=== PATIENT | female | born 1985 | race Caucasian/White ===

== ENCOUNTER 2017-08-23 18:00 | Outpatient (CLI) | payer MEDICAID ==
[~2017-08-23] VITALS: Ht 152.4 cm; Wt 74.2 kg
[2017-08-23 18:11] VITALS: BP 116/69; PULSE 106; RESP 16; Ht 152.4 cm; Wt 74.2 kg
--- NOTE | 2017-08-23 18:39 | RADRPT ---
PROCEDURE: Obstetrical ultrasound CLINICAL INDICATION: . OB ultrasound with fluid volume assessment. TECHNIQUE: Transabdominal sonographic images of the uterus obtained after first trimester , greater than 14 weeks gestation. Single intrauterine gestation present. Examination for fluid volu me assessment. COMPARISON: None available. FINDINGS: Presentation: Cephalic Partially visualized placenta: anterior heart rate: 133 Beats per minute. IMPRESSION: Amniotic fluid index equals 9.9 cm. RPTAT: AADD .Edgardo Fisher MD, MD Date Time Electronically viewed and signed by .Edgardo Fisher MD, on 08/23/2017 18:39 .B/
--- NOTE | 2017-08-23 19:36 | PN ---
Triage Information Date/Time 08/23/17 193 Reason for visit: SROM Weeks of Gestation 36w5d /Para Diabetes: none Hypertention: none Objective Vital Signs Date Time Temp Pulse Resp B/P Pulse Ox O2 Delivery O2 Flow Rate FiO2 08/23/17 18:11 97.7 106 16 116/69 Heart Rate: 140's Contractions: None Exam vaginal speculum exam no pooling ROM plus neg VE closed Results/Medications Results 24 hrs Laboratory Tests Test 08/23/17 18:09 Membranes Rupture NEGATIVE Imaging Results AUGUST 9.9 Disposition: Discharge Assessment/Plan A IUP 36w5d no ROM P discharge home with routine labor instructions take caution as if leaking fluid such as no bath and no sex RTH if any more question of leaking still repeat AUGUST in 3days CLAYTON RICHTER MD Aug 23, 2017 19:36
== END 2017-08-23 19:25 | disposition home or self-care (01) ==
LOC: OBT 18:00 → L-D 18:01 → OBT 19:25
PROVIDERS: ATTEND Obstetrics & Gynecology
DX: O42.913 Preterm premature rupture of membranes, unspecified as to length of time between rupture and onset of labor, third trimester (principal); Z3A.36 36 weeks gestation of pregnancy
CPT/HCPCS: 76815; 84112; Z7500; G0463

== ENCOUNTER 2017-09-08 13:30 | Inpatient (IN) | payer MEDICAID ==
[~2017-09-08] VITALS: Ht 144.8 cm; Wt 75.1 kg
[~2017-09-08 13:30] MED LIST: OXYTOCIN 30 UNITS/LR 500 ML BAG IV ONE
[2017-09-08 14:06] VITALS: Ht 144.8 cm; Wt 75.1 kg
[2017-09-08] MEDS ORDERED: PREN-19 PO (14:08)
[2017-09-08] MEDS ORDERED: METHYLERGONOVINE 0.2 MG INJ IM PRN (14:30)
[2017-09-08] MEDS ORDERED: CARBOPROST 250 MCG INJ IM PRN (14:30)
[2017-09-08] MEDS ORDERED: OXYTOCIN 30 UNITS/LR 500 ML IV PRN (14:30)
[2017-09-08] MEDS ORDERED: CEFAZOLIN 2 GM/50 ML (PMX) 50 ML IV SCH (14:30)
[2017-09-08] MEDS ORDERED: OXYTOCIN 30 UNITS/LR 500 ML IV SCH (14:30)
[2017-09-08] MEDS ORDERED: MISOPROSTOL 200 MCG TAB PR PRN (14:30)
[2017-09-08 15:11] LABS: BASOPHILS % 0.2 % (0.0-2.0); EOSINOPHILS % 0.4 % (0.0-7.0); HEMATOCRIT 36.3 % (37.0-47.0); HEMOGLOBIN 12.5 g/dl (12.0-16.0); LYMPHOCYTES # 1.3 10^3/ul (0.8-2.9); LYMPHOCYTES % 13.8 % (15.0-51.0); MEAN CORPUSCULAR HEMOGLOBIN 30.4 pg (29.0-33.0); MEAN CORPUSCULAR HGB CONC 34.4 g/dl (32.0-37.0); MEAN CORPUSCULAR VOLUME 88.3 fl (82.0-101.0); MEAN PLATELET VOLUME 9.4 fl (7.4-10.4); MONOCYTE # 0.6 10^3/ul (0.3-0.9); NEUTROPHIL # 7.1 10^3/ul (1.6-7.5); NEUTROPHILS % 77.7 % (39.0-77.0); PLATELET COUNT 182 10^3/UL (140-415); RED BLOOD COUNT 4.11 10^6/ul (4.20-5.40); RED CELL DISTRIBUTION WIDTH 13.5 % (11.5-14.5); WHITE BLOOD COUNT 9.1 10^3/ul (4.8-10.8)
[2017-09-08 15:48] VITALS: BP 114/71; PULSE 76; RESP 18
[2017-09-08 15:50] LABS: INR 0.89; PT RATIO 0.9
[2017-09-08 15:51] LABS: PARTIAL THROMBOPLASTIN TIME 29.6 Sec (25.0-35.0)
[2017-09-08] MEDS ORDERED: LACTATED RINGER'S 1,000 ML IV SCH (16:00)
[2017-09-08] MEDS ORDERED: LACTATED RINGER'S 1,000 ML IV STA (17:08)
[2017-09-08] MEDS ORDERED: morphine 4 MG/ML VIAL IV PRN (17:30)
[2017-09-08] MEDS ORDERED: ZOLPIDEM 5 MG TAB PO PRN (17:30)
[2017-09-08] MEDS ORDERED: morphine 2 MG INJ IV PRN (17:30)
[2017-09-08] MEDS ORDERED: ONDANSETRON 4 MG INJ IV PRN (17:30)
[2017-09-08] MEDS ORDERED: DIPHENHYDRAMINE 50 MG INJ IV PRN (17:30)
[2017-09-08] MEDS ORDERED: NALOXONE (0.4 MG/ML) INJ IV PRN (17:30)
[2017-09-08] MEDS ORDERED: morphine SULFATE/PF (10 MG/10 ML) INJ ONE (17:39)
[2017-09-08] MEDS ORDERED: FENTAnyl 50 MCG/ML VIAL ONE (17:39)
--- NOTE | 2017-09-08 17:53 | HP ---
Date/Time of Note Date/Time of Note DATE: 09/08/17 TIME: 17:50 OB - History Hx of Present Chief Complaint: scheduled c/s Estimated Due Date: Sep 15, 2017 : 4 Para: 3 Spontaneous : 0 Therapeutic : 0 Care: Good Care Ultrasounds: Normal mid trimester US Obstetrical Complications: None Medical Complications: None Past Family/Social History * Past Medical, Surgical, Family and Obstetric Histories reviewed from chart. GBS Status: Negative OB Admission Exam Vital Signs Vital Signs Vital Signs Date Time Temp Pulse Resp B/P Pulse Ox O2 Delivery O2 Flow Rate FiO2 09/08/17 15:48 97.9 76 18 114/71 Room Air Physical Exam HEENT: WNL Heart: Rhythm Normal Lungs: Clear, Equal Abdomen: WNL Extremities: Normal Reflexes: Normal Heart Rate: 120's Accelerations: Accelerations Present Decelerations: No Decelerations Varibility: Moderate Last 72 hours Lab Results CBC & BMP 09/08/17 14:30 OB Assessment/Plan Reason for admission: section Plan: Section SOLOMON ANDINO MD Sep 08, 2017 17:53
[2017-09-08] MEDS ORDERED: DEXAMETHASONE 4 MG/ML 1 ML INJ ONE (18:25)
--- NOTE | 2017-09-08 19:30 | OPPN ---
Date/Time of Note Date/Time of Note DATE: 09/08/17 TIME: 19:24 Operative Report Planned Procedure Procedure date Sep 08, 2017 Procedure(s) Repeat c/s Performed by Solomon Andino MD Patternmaker Metal Bench Omaira Rendon MD Anesthesiologist: RAH KRAUS Pre-procedure diagnosis 39 weeks previous c/s Anesthesia Type: spinal Post-Procedure Post-procedure diagnosis Same Findings Live Baby [], Apgars 9 and 9 Estimated Blood Loss: 500 - 600 mls (600 ml) Specimen(s) none Grafts/Implant(s) none Complication(s) none SOLOMON ANDINO MD Sep 08, 2017 19:30
[2017-09-08 20:00] VITALS: BP 107/68; PULSE 87; RESP 18
--- NOTE | 2017-09-08 20:03 | OPR ---
DATE OF OPERATION: 09/08/2017 PREOPERATIVE DIAGNOSES: at 39 weeks with previous section. POSTOPERATIVE DIAGNOSES: at 39 weeks with previous section. OPERATION PERFORMED: Repeat low transverse section. SURGEON: Solomon Mendes MD. FLAME CUTTING MACHINE OPERATOR HELPER: Omaira Rendon MD ANESTHESIA: Spinal. ANESTHESIOLOGIST: Dr. Harrell. PROCEDURE: The patient was taken to the operating room and placed on the operating table. After sylvester ccessful spinal anesthesia was given, the patient was placed in supine position. The area was prepa red and draped in the usual sterile fashion. Spinal anesthesia was tested and was satisfactory. Us ing a scalpel, Pfannenstiel incision was made about 2 fingerbreadths above the symphysis pubis. The incision was carried to the fascia. The fascia was incised and extended bilaterally with Silverio scis sors. Two Anju's were used to separate the fascia from the muscle. The muscle was dissected down to peritoneum. The peritoneum was secured with 2 Kellys and incised with Metzenbaum scissors. Usi ng a scalpel, a small transverse incision was made in the lower segment of the uterus. Upon enterin g the uterine cavity, bandage scissors were inserted to extend the incision bilaterally, curved up. Baby was delivered from cephalic presentation. There was a nuchal cord. After suctioning clear of amniotic fluid, the baby was handed off to the team in attendance. Apgars were 9 and 9. The placenta was delivered without difficulty. The uterus was closed with #1 Monocryl continuous lo cked. After assuring hemostasis, both ovaries and tubes were inspected, all looked normal. The per itoneum was closed with 2-0 Vicryl continuous. The fascia was closed with #1 Vicryl continuous in 2 segments. Subcutaneous tissue was reapproximated with 2-0 plain. The skin was closed with ced . ESTIMATED BLOOD LOSS: 600 mL. COUNTS: All counts were correct. Dictated By: SOLOMON MENDES MD GD/NTS Conf#: [id number] DID#: [id number]
[2017-09-08] MEDS: KETOROLAC 30 MG INJ IV PRN (21:09)
[2017-09-08 21:55] VITALS: BP 112/76; PULSE 88; RESP 18
[2017-09-09] VITALS: BP 118/68; PULSE 74; RESP 18
[2017-09-09] MEDS ORDERED: CARBOPROST 250 MCG INJ IM PRN (01:00)
[2017-09-09] MEDS ORDERED: METHYLERGONOVINE 0.2 MG INJ IM PRN (01:00)
[2017-09-09] MEDS ORDERED: LANOLIN 7 GM TUBE TOP PRN (01:00)
[2017-09-09] MEDS ORDERED: MISOPROSTOL 200 MCG TAB PR PRN (01:00)
[2017-09-09] MEDS ORDERED: OXYTOCIN 30 UNITS/LR 500 ML IV PRN (01:00)
[2017-09-09] MEDS: OXYTOCIN 30 UNITS/LR 500 ML IV SCH ×2 (01:09→06:10)
[2017-09-09] MEDS: KETOROLAC 30 MG INJ IV PRN ×2 (03:22→15:37)
[2017-09-09 04:00] VITALS: BP 100/59; PULSE 90; RESP 18
[2017-09-09 08:15] VITALS: BP 110/59; PULSE 78; RESP 16
[2017-09-09 09:08] LABS: BASOPHILS % 0.1 % (0.0-2.0); HEMATOCRIT 30.2 % (37.0-47.0); HEMOGLOBIN 10.6 g/dl (12.0-16.0); LYMPHOCYTES # 1.2 10^3/ul (0.8-2.9); LYMPHOCYTES % 8.3 % (15.0-51.0); MEAN CORPUSCULAR HEMOGLOBIN 31.1 pg (29.0-33.0); MEAN CORPUSCULAR HGB CONC 35.1 g/dl (32.0-37.0); MEAN CORPUSCULAR VOLUME 88.6 fl (82.0-101.0); MEAN PLATELET VOLUME 9.5 fl (7.4-10.4); MONOCYTE # 1.1 10^3/ul (0.3-0.9); MONOCYTES % 7.5 % (0.0-11.0); NEUTROPHIL # 11.7 10^3/ul (1.6-7.5); NEUTROPHILS % 83.3 % (39.0-77.0); PLATELET COUNT 182 10^3/UL (140-415); RED BLOOD COUNT 3.41 10^6/ul (4.20-5.40); RED CELL DISTRIBUTION WIDTH 13.4 % (11.5-14.5); WHITE BLOOD COUNT 14.1 10^3/ul (4.8-10.8)
[2017-09-09] MEDS ORDERED: INFLUENZA VIRUS VACCINE 0.5 ML SYG IM* ONE (09:30)
[2017-09-09] MEDS: LACTATED RINGER'S 1,000 ML IV SCH ×2 (10:00→20:00)
[2017-09-09] MEDS: SENNA/DOCUSATE NA (8.6MG/50MG) TAB PO SCH ×2 (10:00→20:05)
[2017-09-09 12:02] VITALS: BP 99/59; PULSE 90; RESP 18
--- NOTE | 2017-09-09 13:08 | QN ---
Documentation Comment No complaint Afebrile VSS Abdomen soft ND POD #1 Stable Ambulate Advance diet. SOLOMON ANDINO MD Sep 09, 2017 13:08
[2017-09-09 16:13] VITALS: BP 95/62; PULSE 93; RESP 18
[2017-09-09] MEDS ORDERED: OXYCODONE/ACETAMINOPHEN (5/325) TAB PO PRN (17:45)
[2017-09-09 20:00] VITALS: BP 107/68; PULSE 87; RESP 18
[2017-09-09] MEDS: IBUPROFEN 800 MG TAB PO SCH (21:59)
[2017-09-10] MEDS: LACTATED RINGER'S 1,000 ML IV SCH (00:48)
[2017-09-10 04:00] VITALS: BP 107/59; PULSE 78; RESP 18
[2017-09-10] MEDS: IBUPROFEN 800 MG TAB PO SCH ×3 (05:21→21:33)
[2017-09-10 08:00] VITALS: BP 108/68; PULSE 75; RESP 17
[2017-09-10] MEDS: SENNA/DOCUSATE NA (8.6MG/50MG) TAB PO SCH ×2 (09:34→21:33)
[2017-09-10] MEDS: OXYCODONE/ACETAMINOPHEN (5/325) TAB PO PRN ×2 (09:35→18:17)
[2017-09-10 16:30] VITALS: BP 93/54; PULSE 71; RESP 16
--- NOTE | 2017-09-10 16:40 | DS ---
Date/Time of Note Date/Time of Note DATE: 09/10/17 TIME: 16:39 Obstetrical Discharge Record Final Diagnosis Final Diagnosis: Term delivered Section Section: Repeat Condition on Discharge Physical Assessment Voiding: Yes Bowel Movement: Yes Breast: Soft, non-tender, Filling Fundus: Firm Abdomen and Incision: Incision intact Calf Tenderness: No Patient Condition: Stable SOLOMON ANDINO MD Sep 10, 2017 16:40
[2017-09-10 20:00] VITALS: BP 109/66; PULSE 87; RESP 20
[2017-09-11 04:30] VITALS: BP 111/67; PULSE 89; RESP 20
[2017-09-11] MEDS: IBUPROFEN 800 MG TAB PO SCH ×2 (06:27→13:17)
[2017-09-11 07:45] VITALS: BP 101/63; PULSE 63; RESP 18
[2017-09-11] MEDS ORDERED: DIPHTH/TET/ACEL PERTUSS (ADULT) 0.5 ML VIAL IM* ONE (09:00)
[2017-09-11] MEDS: SENNA/DOCUSATE NA (8.6MG/50MG) TAB PO SCH (10:09)
[2017-09-11] MEDS: OXYCODONE/ACETAMINOPHEN (5/325) TAB PO PRN (10:09)
== END 2017-09-11 14:55 | disposition home or self-care (01) | DRG 766 ==
LOC: L-D 13:30 → PP1 21:58
PROVIDERS: ADMIT Obstetrics & Gynecology; ATTEND Obstetrics & Gynecology
PROC: 3E033VJ Introduction of Other Hormone into Peripheral Vein, Percutaneous Approach (ICD-10-PCS; 2017-09-08)
PROC: 10D00Z1 Extraction of Products of Conception, Low, Open Approach (ICD-10-PCS; principal; 2017-09-08 17:00)
DX: O34.211 Maternal care for low transverse scar from previous cesarean delivery (principal); Z37.0 Single live birth; Z3A.39 39 weeks gestation of pregnancy
CPT/HCPCS: 85025; 85610; 85730; 86592; 86850; 86900; 86901; 87340; 90686; 90715; 94760; 99464; J0690; J1100; J1885; J2274; J2590; J3010; J7120

== ENCOUNTER 2019-01-28 01:23 | Inpatient (IN) | payer MEDICAID ==
[~2019-01-28] VITALS: Ht 149.9 cm; Wt 77.2 kg
[2019-01-28] VITALS (7 sets, daily range): BP systolic 98–123; BP diastolic 51–68; PULSE 85–102; RESP 17–18; Ht 149.9 cm; Wt 77.2 kg
[~2019-01-28 01:23] MED LIST changes: -OXYTOCIN 30 UNITS/LR 500 ML BAG IV ONE; +PREN-19 PO
[2019-01-28] MEDS ORDERED: OXYTOCIN 30 UNITS/LR 500 ML IV PRN ×2 (01:30→06:30)
[2019-01-28] MEDS ORDERED: MISOPROSTOL 200 MCG TAB PR PRN ×2 (01:30→06:30)
[2019-01-28] MEDS ORDERED: OXYTOCIN 30 UNITS/LR 500 ML IV SCH (01:30)
[2019-01-28] MEDS ORDERED: CARBOPROST 250 MCG INJ IM PRN ×2 (01:30→06:30)
[2019-01-28] MEDS ORDERED: METHYLERGONOVINE 0.2 MG INJ IM PRN ×2 (01:30→06:30)
[2019-01-28] MEDS ORDERED: CEFAZOLIN 2 GM/50 ML (PMX) 50 ML IVPB SCH (01:45)
[2019-01-28] MEDS: LACTATED RINGER'S 1,000 ML IV SCH ×4 (01:47→17:53)
[2019-01-28] MEDS ORDERED: TERBUTALINE 1 MG/ML INJ SC ONE (02:00)
[2019-01-28] MEDS ORDERED: AZITHROMYCIN 500MG/NS (PMX) 250 ML IVPB ONE (02:00)
[2019-01-28] MEDS ORDERED: ONDANSETRON 4 MG INJ IV ONE ×2 (02:27→03:00)
--- NOTE | 2019-01-28 02:27 | TRIAGE ---
OB Triage Datetime Report Generated by CPN: 01/28/2019 02:27 Datetime: 01/28/2019 02:05 Comments: LOSS OF CONTACT Datetime: 01/28/2019 01:47 Assessment Type: Admission Assessment Maternal Assessment Level of Consciousness: Fully Conscious DTR's/Clonus: DTRs 2+; No Clonus Headache: Denies Blurred Vision: No Respiratory Effort: Unlabored; Regular Rhythm; Equal Expansion Breath Sounds, Left: Clear and Equal Breath Sounds, Right: Clear and Equal Nausea/Vomiting: Denies RUQ Epigastric Pain: Denies Lower Extremities Edema: None Upper Extremities Edema: None Facial Edema: None Fall Risk Assessment History of Falling: (0) No Secondary Diagnosis: (0) No Ambulatory Aid: (0) Bedrest/Nurse Assist IV Therapy: (0) No Gait: (0) Normal/Bedrest/Immobile Mental Status: (0) Oriented to Own Ability Fall Score: 0 Fall Risk Score Definition: No Risk: No action required Labor Evaluation Frequency: 2-3 Duration (sec)2399: 60-70 Quality: Moderate Pattern: Normal: <= 5 Contractions in 10 Minutes Resting Tone Gran[place]: Relaxed Heart Rate FHR Baseline Rate: 155 Variability: Moderate 6-25 bpm Accelerations: 15X15 Decelerations: Late Category: Category II Pain Assessment Pain Scale: 5 Pain Presence: Intermittent Pain Type: Contraction Pain Location: Abdomen Pain Goal: 2 Membrane Status: Ruptured Membranes Ruptured Date/Time: 01/27/2019 23:55 Membranes Rupture Method: Spontaneous Amniotic Fluid Color: Clear Amniotic Fluid Amount: Moderate Amniotic Fluid Odor: None Datetime: 01/28/2019 01:40 Labor Evaluation Frequency: 1-3 Monitor Mode: External Duration (sec)2399: 60-150 Quality: Moderate Pattern: Normal: <= 5 Contractions in 10 Minutes Resting Tone Gran[place]: Relaxed Heart Rate FHR Baseline Rate: 155 Monitor Mode: External US Variability: Moderate 6-25 bpm Accelerations: 15X15 Decelerations: Early Category: Category I Datetime: 01/28/2019 01:28 Time of Arrival: 01/28/2019 01:32 EGA: 37.6 Arrived By: Wheelchair Arrived From: Home Chief Complaint: SROM around 2355 with UC's Movement: Present Contractions: Regular Contractions: q5mins Rupture of Membranes: Ruptured Vaginal Bleeding: Normal Show Vaginal Discharge: Present Recent Sexual Intercouse: Denies Abdominal Trauma: Not Applicable Patient Complaints: Contractions; Other Time Provider Notified: 01/28/2019 01:32 Provider Notified: Initial Plan: EFM, VS, SVE Datetime: 01/28/2019 01:27 Vaginal Exam Dilatation (cms): 2.0 Effacement (%): 80 Station: -2 Exam By: SUDHAKAR WONG Membrane Status: Ruptured Vaginal Bleeding: Normal Show Nitrazine: Positive Cervix, Consistency: Soft Cervix, Position: Midposition Presentation 'A': Cephalic Datetime: 01/28/2019 01:26 Maternal Assessment Level of Consciousness: Fully Conscious DTR's/Clonus: DTRs 2+; No Clonus Headache: Denies Blurred Vision: No Respiratory Effort: Unlabored; Regular Rhythm; Equal Expansion Breath Sounds, Left: Clear and Equal Breath Sounds, Right: Clear and Equal Nausea/Vomiting: Denies RUQ Epigastric Pain: Denies Lower Extremities Edema: None Degree: None Upper Extremities Edema: None Degree: None Facial Edema: None Temperature Route: Oral Fall Risk Assessment History of Falling: (0) No Secondary Diagnosis: (0) No Ambulatory Aid: (0) Bedrest/Nurse Assist IV Therapy: (0) No Gait: (0) Normal/Bedrest/Immobile Mental Status: (0) Oriented to Own Ability Fall Score: 0 Fall Risk Score Definition: No Risk: No action required Pain Assessment Pain Scale: 6 Pain Presence: Intermittent Pain Type: Contraction Pain Location: Abdomen; Back Pain Relief Measures: Comfort Measures Datetime: 01/28/2019 01:25 Membranes Ruptured Date/Time: 01/27/2019 23:55 Membranes Rupture Method: Spontaneous Amniotic Fluid Color: Clear Amniotic Fluid Amount: Moderate Amniotic Fluid Odor: None Datetime: 01/28/2019 01:24 Stage of : OB Triage Monitor Mode: External Monitor Mode: External US Comments: monitors applied, FHT audible at 155bpm
[2019-01-28] MEDS ORDERED: CITRIC ACID/NA CITRATE 30 ML CUP PO ONE ×2 (02:30→03:00)
--- NOTE | 2019-01-28 02:45 | PREAC ---
Date/Time of Note Date/Time of Note DATE: 01/28/19 TIME: 02:43 Anesthesia Eval and Record Evaluation Time Pre-Procedure Interview DATE: 01/28/19 TIME: 02:43 Age 33 Sex female NPO: 8 hrs Preoperative diagnosis [facility] Planned procedure repeat c section Past Medical History Past Medical History: None Surgery & Anesthesia Issues No known issue Meds Anticoagulation: No Beta Joanne within 24 hr: No Reason Beta Joanne not given: Pt. not on B-Joanne Reported Medications Vit #76/Iron,Carb/FA (Prenatabs Rx Tablet) 1 Each Tablet, 1 EACH PO DAILY, TAB 09/08/17 Current Medications Lactated Ringer's 1,000 ml @ 125 mls/hr Q8H IV Last administered on 01/28/19at 02:23; Admin Dose 125 MLS/HR; Start 01/28/19 at 01:26 Cefazolin Sodium/ Dextrose 50 ml @ 100 mls/hr ONCE IVPB ; Start 01/28/19 at 01:45 Oxytocin/Lactated Ringer's 500 ml @ 125 mls/hr POST IV ; Start 01/28/19 at 01:30 Oxytocin/Lactated Ringer's 500 ml @ 0 mls/hr ONCE PRN IV .VAGINAL BLEEDING; Start 01/28/19 at 01:30 Methylergonovine Maleate (Methergine) 0.2 mg ONCE PRN IM .VAGINAL BLEEDING; Start 01/28/19 at 01:30 Carboprost Tromethamine (Hemabate) 250 mcg ONCE PRN IM .VAGINAL BLEEDING; Start 01/28/19 at 01:30 Misoprostol (Cytotec) 1,000 mcg ONCE PRN TN .VAGINAL BLEEDING; Start 01/28/19 at 01:30 Azithromycin 250 ml @ 250 mls/hr ONCE ONCE IVPB Last administered on 01/28/19at 02:37; Admin Dose 250 MLS/HR; Start 01/28/19 at 02:00; Stop 01/28/19 at 02:59 Meds reviewed: Yes Allergies Coded Allergies: No Known Allergy (Verified , 01/28/19) Allergies Reviewed: Yes Labs/Studies Labs Reviewed: Reviewed by anesthesiologist Result Diagram: 01/28/19 0139 Laboratory Tests 01/28/19 01:39 Blood Bank Test 01/28/19 01:39 Antibody Screen NEGATIVE Blood Type O POSITIVE Rh Immune Globulin Candidate NO test: Positive Pre-procedure Exam Airway: Adequate mouth opening, Adequate thyromental dist Mallampati: Mallampati I Teeth: Normal Lung: Normal Heart: Normal ASA Physical Status ASA physical status: 2 Emergency: None Planned Anesthetic Neuraxial: Spinal Planned Pain Management Sub-arachniod narcotics, Parenteral pain med Pre-operative Attestations Prior to commencing anesthesia and surgery, the patient was re-evaluated, there was verification of: *The patient's identity *The results of appropriate recent lab work and preoperative vital signs *The above evaluation not changing prior to induction *Anesthetic plan, risk benefits, alternative and complications discussed with patient/family; questions answered; patient/family understands, accepts and wishes to proceed. RAH KRAUS Jan 28, 2019 02:45
[2019-01-28] MEDS ORDERED: morphine SULFATE/PF (10 MG/10 ML) INJ ONE (03:22)
[2019-01-28] MEDS ORDERED: DEXAMETHASONE 4 MG/ML 1 ML INJ ONE (03:22)
[2019-01-28] MEDS ORDERED: HYDROmorphONE 0.5 MG/0.5 ML SYG IV PRN ×2 (04:30)
[2019-01-28] MEDS ORDERED: ZOLPIDEM 5 MG TAB PO PRN (04:30)
[2019-01-28] MEDS ORDERED: NALOXONE (0.4 MG/ML) INJ IV PRN (04:30)
[2019-01-28] MEDS ORDERED: DIPHENHYDRAMINE 50 MG INJ IV PRN (04:30)
[2019-01-28] MEDS ORDERED: ONDANSETRON 4 MG INJ IV PRN (04:30)
[2019-01-28] MEDS: OXYTOCIN 30 UNITS/LR 500 ML IV SCH ×2 (06:14→16:14)
[2019-01-28] MEDS ORDERED: LANOLIN HPA 1 PKT TOP PRN (06:30)
[2019-01-28] MEDS ORDERED: NACL 0.9% 3 ML SYG IV SCH (06:30)
--- NOTE | 2019-01-28 06:31 | OPR ---
Operative Report Planned Procedure Free Text/Dictation Repeat for this 33 y.o. with 2 prior c-sections came in with SROM and active labor. Procedure date Jan 28, 2019 Procedure(s) Repeat with bilateral tubal ligation. Performed by see signature line Pocketed Spring Machine Operator: CLAYTON RICHTER MD Anesthesiologist: RAH KRAUS Pre-procedure diagnosis IUP at 37w 6d, spontaneous rupture of membranes, active labor. Desires permanent sterilization. [id number] Anesthesia Type: [id number] spinal Post-Procedure Post-procedure diagnosis Same. Findings Viable baby boy weighing 3205 grams or 7# 1 oz, 20" long, and with Apgars of 8/9. Estimated Blood Loss: 600 - 700 mls Specimen(s) none Grafts/Implant(s) none Complication(s) none Disposition: PACU Procedure Description Under satisfactory spinal anesthesia, the patient was prepped and draped and placed in a supine position, tilted to the left. Pfannenstiel incision was made, carried through the subcutaneous tissue. Bleeders brought under control with electrocautery. Fascia incised to the length of the incision. Rectus muscles from the fascia, divided midline. Peritoneum exposed, entered through a transverse incision.There was a uterine window and the bladder was high up on the uterus. Transverse incision was made in the lower segment of the uterus, but staying high above the bladder. Amniotic sac ruptured. Clear amniotic fluid noted. The head was elevated through the incision. The mouth and nares were bulb suctioned. The rest of the baby was then delivered. The cord was doubly clamped and cut. The baby was brought to the warmer and the team for immediate attention. Cord blood was obtained. The placenta was delivered manually intact. Uterine cavity was cleaned with wet sponge and drainage established. Uterus closed in 2 layers using #1 chromic in continuous fashion. Peritoneal cavity irrigated with warm saline. Sponge, needle and instrument count reported to be correct. Abdominal peritoneum closed with 2-0 Chromic continuously. Rectus muscle approximated with the same suture. Fascia closed with 0-Vicryl. The subcutaneous tissue was irrigated and closed with 2-0 Chromic and skin was closed with 3-0 Monocryl in a subcuticular stitch. Steristrips with Mastosol were placed. Estimated blood loss 700 mL. Urine was clear. ANDREWS CHAVEZ MD Jan 28, 2019 06:31
--- NOTE | 2019-01-28 06:39 | HP ---
Date/Time of Note Date/Time of Note DATE: 01/28/19 TIME: 06:32 OB - History Hx of Present Free Text/Dictation 33 y.o. with 2 prior c-sections and an IUP at 37w 5d came in labor with ruptured membranes and was readied for repeat . Estimated Due Date: Feb 12, 2019 : 5 Para: 4 Care: Good Care Ultrasounds: Normal mid trimester US Obstetrical Complications: None Medical Complications: None Past Family/Social History * Past Medical, Surgical, Family and Obstetric Histories reviewed from chart. Blood Type: O+ Rubella: immune RPR/VDRL: Negative GBS Status: Unknown HBsAG: Negative OB Admission Exam Physical Exam HEENT: WNL Heart: Rhythm Normal Lungs: Clear Abdomen: WNL Extremities: Normal Reflexes: Normal Cervical Dilatation: 2cm Effacement: 75% Membranes: Ruptured Amniotic Fluid: Clear Heart Rate: 140's Accelerations: Accelerations Present Decelerations: No Decelerations Varibility: Moderate Contractions on Admission: < 5 Minutes Apart Intensity: Moderate Last 72 hours Lab Results CBC & BMP 01/28/19 01:39 ANDREWS CHAVEZ MD Jan 28, 2019 06:39
[2019-01-28] MEDS: KETOROLAC 30 MG INJ IV PRN ×2 (07:08→17:53)
[2019-01-29] VITALS: BP 96/57; PULSE 107; RESP 17
[2019-01-29] MEDS: LACTATED RINGER'S 1,000 ML IV SCH ×2 (03:32→09:05)
[2019-01-29] MEDS ORDERED: KETOROLAC 30 MG INJ IV SCH (03:44)
[2019-01-29 03:50] VITALS: BP 97/52; PULSE 101; RESP 17
[2019-01-29] MEDS: IBUPROFEN 800 MG TAB PO SCH ×3 (06:00→17:57)
[2019-01-29 08:30] VITALS: BP 86/60; PULSE 101; RESP 20
--- NOTE | 2019-01-29 08:33 | PAC ---
Date/Time of Note Date/Time of Note DATE: 01/29/19 TIME: 08:33 Post-Anesthesia Notes Post-Anesthesia Note Last documented vital signs Vital Signs Date Temp Pulse Resp B/P (MAP) Pulse Ox O2 O2 Flow FiO2 Time Delivery Rate 01/29/19 98.1 101 17 97/52 (67) 96 Room Air 07:50 Activity: WNL Respiratory function: WNL Cardiovascular function: WNL Mental status: Baseline Pain reasonably controlled: Yes Hydration appropriate: Yes Nausea/Vomiting absent: Yes RAH KRAUS Jan 29, 2019 08:33
[2019-01-29] MEDS: OXYCODONE/ACETAMINOPHEN (5/325) TAB PO PRN ×2 (08:53→16:09)
[2019-01-29 12:12] VITALS: BP 95/56; PULSE 88; RESP 18
--- NOTE | 2019-01-29 15:59 | QN ---
Documentation Comment POD#1 is stable afebrile +Flatus+voids NO VB Vs stable Gen NAD Abd soft NT ND Incision intact Genitalia No blood at perineum -->Discharge plan tomorrow CHERYL DAMON M.D. Jan 29, 2019 15:59
[2019-01-29 16:00] VITALS: BP 100/55; PULSE 109; RESP 18
[2019-01-29 19:45] VITALS: BP 99/63; PULSE 102; RESP 18
[2019-01-30] MEDS: IBUPROFEN 800 MG TAB PO SCH ×5 (00:20→23:50)
[2019-01-30 03:58] VITALS: BP 99/55; PULSE 97; RESP 17
[2019-01-30 04:18] VITALS: BP 99/5; PULSE 97; RESP 17
[2019-01-30 08:00] VITALS: BP 97/57; PULSE 75; RESP 19
[2019-01-30] MEDS: OXYCODONE/ACETAMINOPHEN (5/325) TAB PO PRN (10:23)
--- NOTE | 2019-01-30 14:09 | QN ---
Documentation Comment No complaint Afebrile VSS Abdomen soft Stable Continue present care SOLOMON ANDINO MD Jan 30, 2019 14:09
[2019-01-30] MEDS ORDERED: MAGNESIUM HYDROXIDE 30ML CUP PO ONE (14:30)
[2019-01-30 16:00] VITALS: BP 113/67; PULSE 82; RESP 18
[2019-01-30 20:30] VITALS: BP 101/56; PULSE 91; RESP 18
[2019-01-31 04:00] VITALS: BP 104/74; PULSE 81; RESP 18
[2019-01-31] MEDS: IBUPROFEN 800 MG TAB PO SCH ×3 (05:34→17:33)
[2019-01-31] MEDS ORDERED: DIPHTH/TET/ACEL PERTUSS (ADULT) 0.5 ML VIAL IM* ONE (09:00)
[2019-01-31 09:20] VITALS: BP 103/62; PULSE 81; RESP 20
[2019-01-31] MEDS: OXYCODONE/ACETAMINOPHEN (5/325) TAB PO PRN (10:20)
[2019-01-31 15:45] VITALS: BP 101/60; PULSE 84; RESP 18
--- NOTE | 2019-01-31 19:30 | DS ---
Date/Time of Note Date/Time of Note DATE: 01/31/19 TIME: 19:28 Obstetrical Discharge Record Final Diagnosis Final Diagnosis: delivered Vaginal Delivery Obstetrical Delivery: Bilateral Tubal Ligation Section Section: Repeat Condition on Discharge Physical Assessment Voiding: Yes Bowel Movement: Yes Breast: Soft, non-tender, Filling Fundus: Firm Abdomen and Incision: Incision intact Calf Tenderness: No Patient Condition: Stable SOLOMON ANDINO MD Jan 31, 2019 19:30
--- NOTE | 2019-02-01 20:46 | DELSUM ---
Delivery Summary A-C Datetime Report Generated by CPN: 02/01/2019 20:45 DELIVERY PERSONNEL Head Refrigerating Engineer: Jose Guadalupe Maile MATERNAL INFORMATION Delivery Anesthesia: Spinal Medications in Delivery: see anesthesiologist flowsheet Delivery QBL (ml): 700 Placenta Cultured: No Maternal Complications: None LABOR SUMMARY EDC: 02/12/2019 00:00 No. Babies in Womb: 1 Attempted: No Labor Anesthesia: None LABOR INFORMATION Reason for Induction: Not Applicable Onset of Labor: 01/27/2019 23:55 Oxytocin: N/A Group B Beta Strep: Negative Antibiotics # of Doses: Azithromycin x1; Ancef x1 Steroids Given: None Reason Steroids Not Administered: Not Applicable MEMBRANES Membranes Rupture Method: Spontaneous Rupture of Membranes: 01/27/2019 23:55 Length of Rupture (hr): 4.08 Amniotic Fluid Color: Clear Amniotic Fluid Amount: Moderate Amniotic Fluid Odor: None STAGES OF LABOR Stage 3 hr: 0 Stage 3 min: 1 Total Time in Labor hr: 4 Total Time in Labor min: 6 CSECTION DELIVERY Primary Indication: Repeat Elective Secondary Indication: Other Other Secondary Indication: SROM _ IN LABOR CSection Urgency: Non Elective CSection Incidence: Repeat Labor: Labor Elective: Nonelective CSection Incision: Lower Uterine Transverse Sterilization Procedure: [place] BABY A INFORMATION Infant Delivery Date/Time: 01/28/2019 04:00 Method of Delivery: Born in Route : No : N/A Forceps: N/A Vacuum Extraction: N/A Shoulder Dystocia : N/A SHOULDER DYSTOCIA BABY A Delivery Date/Time: 01/28/2019 04:00 PRESENTATION/POSITION BABY A Presentation: Cephalic Cephalic Presentation: Vertex Vertex Position: Left Occipital Anterior Breech Presentation: N/A PLACENTA INFORMATION BABY A Placenta Delivery Time : 01/28/2019 04:01 Placenta Method of Delivery: Manual Removal Placenta Status: Delivered SCORES BABY A Heart Rate 1 min: >100 bpm Resp Effort 1 min: Good Cry Reflex Irritability 1 min: Cough/Sneeze/Pulls Away Muscle Tone 1 min: Active Motion Color 1 min: Blue/Pale Resuscitation Effort 1 min: Tactile Stimulation SCORE 1 MIN: 8 Heart Rate 5 min: >100 bpm Resp Effort 5 min: Good Cry Reflex Irritability 5 min: Cough/Sneeze/Pulls Away Muscle Tone 5 min: Active Motion Color 5 min: Body [place], Extremit Blue Resuscitation Effort 5 min: Tactile Stimulation SCORE 5 MIN: 9 INFANT INFORMATION BABY A Gestational Age at Delivery: 37.6 Gestational Status: Early Term- 37- 38.6 Weeks Infant Outcome : Liveborn Condition : Stable Sex: Male IDENTIFICATION/MEDS BABY A ID Band Number: [id number] ID Band Location: Right Leg; Left Arm Sensor Applied: Yes Sensor Number: [id number] Sensor Location : Cord Clamp Vitamin K Given : Left Thigh Erythromycin Given: Given Both Eyes WEIGHT/LENGTH BABY A Infant Birthweight (gm): 3205 Weight (lb): 7 Weight (oz): 1 Infant Length (in): 20.00 Infant Length (cm): 50.80 CORD INFORMATION BABY A No. Cord Vessels: 3 Nuchal Cord : N/A Cord Blood Taken: Yes Banking/Donate Info: NONE Infant Suction: Mouth; Nose ASSESSMENT BABY A Infant Complications: None Physical Findings at Delivery: Within Normal Limits Respirations: Appears Normal Non Destructive Testing Specialist/ALS Called : No Infant Care By: Jefferson BABCOCK RN Transferred To: Remains with Mother
== END 2019-01-31 19:55 | disposition home or self-care (01) | DRG 785 ==
LOC: OBT 01:23 → L-D 01:24 → OBT 01:32 → PP1 08:53
PROVIDERS: ADMIT Obstetrics & Gynecology; ATTEND Obstetrics & Gynecology
PROC: 0UB70ZZ Excision of Bilateral Fallopian Tubes, Open Approach (ICD-10-PCS; 2019-01-28)
PROC: 4A1HXCZ Monitoring of Products of Conception, Cardiac Rate, External Approach (ICD-10-PCS; 2019-01-28)
PROC: 10D00Z1 Extraction of Products of Conception, Low, Open Approach (ICD-10-PCS; principal; 2019-01-28 04:00)
PROC: 3E0234Z Introduction of Serum, Toxoid and Vaccine into Muscle, Percutaneous Approach (ICD-10-PCS; 2019-01-31)
DX: O34.219 Maternal care for unspecified type scar from previous cesarean delivery (principal); Z3A.37 37 weeks gestation of pregnancy; Z37.0 Single live birth; Z30.2 Encounter for sterilization; Z23 Encounter for immunization
CPT/HCPCS: 85025; 85610; 85730; 86592; 86850; 86900; 86901; 87340; 88302; 90715; 99464; G0463; J0456; J0690; J1100; J1885; J2210; J2274; J2405; J2590; J3105; J7120